=== PATIENT | male | born 1965 | race Caucasian/White ===

== ENCOUNTER 2018-10-18 18:59 | Emergency (ER) | payer MEDICAID ==
[~2018-10-18] VITALS: Ht 167.6 cm; Wt 72.1 kg
[2018-10-18 19:12] VITALS: Ht 167.6 cm; Wt 72.1 kg
[2018-10-18 21:15] VITALS: BP 133/86
== END 2018-10-18 21:15 | disposition home or self-care (01) ==
LOC: ED 18:59
DX: J06.9 Acute upper respiratory infection, unspecified (principal)
CPT/HCPCS: J1885

== ENCOUNTER 2018-12-10 14:55 | Emergency (ER) | payer MEDICAID ==
[~2018-12-10] VITALS: Ht 167.6 cm; Wt 70.8 kg
[2018-12-10 15:11] VITALS: Ht 167.6 cm; Wt 70.8 kg
[2018-12-10 19:50] VITALS: BP 122/73
== END 2018-12-10 19:50 | disposition home or self-care (01) ==
LOC: ED 14:55
DX: R10.2 Pelvic and perineal pain (principal); M53.3 Sacrococcygeal disorders, not elsewhere classified; W18.39XA Other fall on same level, initial encounter; Y93.89 Activity, other specified; Y92.89 Other specified places as the place of occurrence of the external cause; Y99.8 Other external cause status
CPT/HCPCS: J1885

== ENCOUNTER 2021-01-03 11:37 | Emergency (ER) | payer MEDICAID ==
[~2021-01-03] VITALS: Ht 170.2 cm; Wt 92.5 kg
[2021-01-03 13:01] VITALS: BP 132/87
== END 2021-01-03 13:19 | disposition home or self-care (01) ==
LOC: ED 11:37
DX: H11.002 Unspecified pterygium of left eye (principal); H57.89 Other specified disorders of eye and adnexa; Z86.19 Personal history of other infectious and parasitic diseases